=== PATIENT | female | born 1945 | race Caucasian/White ===

== ENCOUNTER 2024-05-08 16:34 | Emergency (ER) | payer MEDICARE, BC, SELFPAY ==
--- OUTSIDE RECORDS SUMMARY | 2024-05-08 16:36 | XMS_ITS | Clinical Summary ---
Author Organization [facility] Address [address] [place] [id number] Care Team Providers Care Apprentice/Lineman Name Role Phone BuschRichy alcazarith Aj Primary Care Provider Allergies Active Allergy Reactions Criticality Noted Date Comments Penicillins *Unknown - Pt Doesn't Remember 06/2015 Medications No known medications Active Problems Problem Noted Date Diagnosed Date Morbid obesity with BMI of 40.0-44.9, adult 11/2015 Bilateral pulmonary embolism 10/08/2015 Acute thromboembolism of deep veins of left lowe r extremity 10/08/2015 Tobacco dependence 10/08/2015 Resolved Problems Problem Noted Date Diagnosed Date Resolved Date Anticoagulation goal of INR 2 to 3 10/11/2015 04/12/2016 Family History Medical History Relation Name Comments Heart Disease Mother CHF Relation Name Status Comments Father (Age 89) Mother (Age 66) CHF Social History Tobacco Use Types Packs/Day Years Used Date Smoking Tobacco: Every Day Cigarettes 1 40 Smokeless Tobacco: Never Tobacco Cessation:Ready to Q uit: Yes; Counseling Given: Yes Comments:Trying to quit Alcohol Use Standard Drinks/Week Comments No 0 (1 standard drink = 0.6 oz pur e alcohol) Comments No Sex and Gender Information Value Date Recorded Sex Assigned at Not on file Legal Sex Female 9:49 AM CDT Gender Identity Not on file Sexual Orientation Not on file 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 Not on file Not on file N ot on file Obstetrics History Last Filed Vital Signs Vital Sign Reading Time Taken Comments Blood Pressure 136/84 01/18/2016 11:59 AM PATTERN P[employer]CHER Pulse 56 01/18/2016 11:59 AM PATTERN P[employer]CHER Temperature 36.4 C (97.6 F) 10/11/2015 2:22 PM CDT Respiratory Rate - - Oxygen Saturation 95% 10/11/2015 2:22 PM CDT Inhaled Oxygen Concentration - - Weight 119.7 kg (263 lb 12.8 oz) 10/11/2015 2:22 PM CDT Height 163.9 cm (5' 4.53) 10/11/2015 2:22 PM CD T Body Mass Index 44.54 10/11/2015 2:22 PM CDT Plan of Treatment Health Maintenance Due Date Last Done Comments Tdap 02/16/1956 Hepatitis C screening for age 18-79 1963 Tetanus booster 1965 Pneumococcal series for age 50+ (1 of 1 - PCV) 1995 Zoster (shingles) series for age 50+ (1 of 2) 1995 DEXA/DXA scan for age 65+ 2010 BMI (ht and wt on same day) for age 18+ 10/10/2016 0 10/11/2015, 10/07/2015 Depression screening for age 12+ 10/10/2016 10/11/19 16, 10/11/2015 RSV vaccine for adults or pr egnancy (1 - 1-dose 75+ series) 02/16/2020 COVID-19 vaccine series ( - 2023-25 season) 2023 Influenza for age 65+ 11/04/2023 Insurance [employer] [place] [employer] [place] ONLY Care Teams Apprentice/Lineman Relationship Specialty Start Date End Date Tung Busch DO [address] [place] [id number] PCP - General Family Practice 10/07/15
[2024-05-08 16:55] VITALS: BP 189/73; PULSE 78; RESP 20; TEMP 36.8; O2SAT 94
--- NOTE | 2024-05-08 17:43 | ED.GENADULT ---
[facility] - General Adult General Date Seen: 05/08/24 Chief complaint: Dizziness/Vertigo Stated complaint: Dizziness Time Seen by Provider: 05/08/24 17:20 History of Present Illness HPI narrative: Patient is a 79-year-old woman here with daughter and son for evaluation of a number of complaints. She says today she has felt lightheaded. She has been short of breath ?lately? , generally with exertion, she has pain in her right sow, she has low back pain which sounds fairly chronic and she has a large abdominal hernia which has never been evaluated. She was last seen here in 2016 at which time she had bilateral DVT and PE. She was treated with Coumadin at that time. She tells me that she was on that for some period of time, possibly 6 months or so and then that was discontinued by [facility]. She says she really has not seen a doctor much in the interim, and we have no other records on her. She denies any chest pain. She has not had fever cough. She denies injury to the right leg. She denies increased swelling to her legs. She does not have abdominal pain or vomiting. She has not had fevers, denies black or bloody stools. She quit smoking in 2016, no significant alcohol use. Currently taking no medications. Review of Systems Status of ROS: Reports: 10 or more systems reviewed and unremarkable except as noted in History and below Exam Narrative: Exam Narrative: Vital signs reviewed In general, an alert elderly woman. She looks comfortable, breathing easily. Head: Normocephalic, atraumatic. Eyes: Sclera clear. Pupils equal and reactive. ENT: Mucous membranes moist. Dentition poor. Neck: Supple without adenopathy. Heart: Regular rate and rhythm without murmur. Lungs: Clear. No increased work of breathing, crackles or wheezes. Abdomen: Soft, nontender to palpation. Large hernia of the abdominal wall, I did not attempt to fully reduce this, but there is no overlying erythema or significant tenderness. Extremities: Well perfused, pulses intact. Mild bilateral edema. She has a focal area of tenderness over the lateral lower right leg. I do not feel any masses there is no erythema or warmth. Neurologic: Alert, conversant. Speech fluent, face symmetric. Moves all extremities equally. Skin: Warm, dry well perfused. Affect: Normal. Const: Vital Signs, click to edit/add: Vital Signs - 24 hr 05/08/24 16:55 05/08/24 20:53 Temperature 98.3 F Pulse Rate [Pulse Oximeter] 78 79 Respiratory Rate 20 Blood Pressure [Ri ght Upper Arm] 189/73 H 203/89 H Pulse Oximetry 94 93 Oxygen Delivery Me thod Room Air Room Air Course Course ED Course: Patient presents with a number of symptoms, the most acute of which seems to be lightheadedness today. She has not had fainting, vital signs are relatively unremarkable aside from significant hypertension. I reviewed her hospitalization from 2016, she had an echo at that time that showed right heart strain but a normal left ventricular ejection fraction of 67%. She was noted to be hypertensive at that time, it does not sound as if she had significant follow-up although she followed up at some point with [facility] because she says they discontinued her Coumadin. Differential diagnosis of her lightheadedness is broad and includes dehydration, anemia, metabolic derangement, cardiac arrhythmia, doubt a central cause as she is not describing vertigo or imbalance, has no other neurologic complaints. She does have this dyspnea on exertion that sounds like it has been present for quite some time although she is not clear exactly how long. I did do an EKG which by my review shows a ventricular rate of 77, sinus rhythm. Nonspecific ST segment changes no acute ischemia. Unremarkable T-waves. Her abdominal hernia has seemingly been there for quite some time and it does not seem to be bothering her significantly today. She does note interest in possibly seeing somebody about it however. With regard to her leg pain, this is been going on for about a week, no specific injury and I do not see anything on exam. With her history of DVT and PE that certainly needs to be considered but I do not see any concerning findings on exam and pain is localized to an area where I would not expected for DVT. I have opted to order D-dimer and if that is negative I do not think she needs further evaluation in terms of DVT. I did order an x-ray just to make sure that there is not an unexpected fracture or stress fracture. Her low back pain according to her kids has been present for 5 or 6 years and I do not think needs specifically evaluated today. I did order imaging of her chest to evaluate for PE, I have ordered a D-dimer as well as a troponin, metabolic panel, CBC to evaluate for any anemia or metabolic derangement and a BNP to evaluate for possible congestive heart failure. Doubt acute coronary syndrome but atypical angina certainly is possible. Patient's labs are really quite reassuring. Her white blood cell count is 9.2, hemoglobin is normal, her D-dimer is 0.9 which is just slightly elevated for age, but her leg exam is so atypical for DVT that I do not think this needs further evaluation at this time. Her blood sugars normal, kidney function is normal, BNP is 5 O2 TSH is normal viral swab is negative in point of care troponin 0. I reviewed her CT scan of the chest which I do not think shows pulmonary embolism, final radiology read reviewed as well, some ground-glass opacities which may be related to something inflammatory versus poor inspiration. CT of the abdomen shows this large hernia but no other acute findings by my review. Final radiology read also reviewed and noted for hernia, cholelithiasis without cholecystitis. X-ray of the tibia was negative. I have discussed all of this with the patient and her children. I think she would benefit from primary care establishment. I think she should have a stress test to rule out atypical angina as a cause for her dyspnea on exertion. Discussed that she could certainly visit with a surgeon about her hernia if she would like although I think from a surgical standpoint she would not be a candidate at this time. Reviewed with her that her blood pressure is likely chronically elevated and should be treated. She is not sure where she will follow up, but she thinks she might like to follow-up here. For now, I have set up an outpatient stress test for her with results to go to Dr. Perry. I have asked her to call to make an appointment with him to establish primary care. Have reviewed with her that if she chooses to go elsewhere she should cancel that stress test and have liver she sees for primary care set that up for her. Reviewed reasons to return such as fainting, chest pain, severe shortness of breath or other worsening. Vital Signs Vital signs: Initial Vital Signs Temperature 98.3 F 05/08/24 16:55 Temperature Source Temporal Artery Scan 05/08/24 16:55 Pulse Rate 78 05/08/24 16:55 Respiratory Rate 20 05/08/24 16:55 Blood Pressure 189/73 H 05/08/24 16:55 Blood Pressure Mean 111 H 05/08/24 16:55 Pulse Oximetry 94 05/08/24 16:55 Oxygen Delivery Method Room Air 05/08/24 16:55 Vital Signs Temperature 98.3 F 05/08/24 16:55 Pulse Rate 78 05/08/24 16:55 Respiratory Rate 20 05/08/24 16:55 Blood Pressure 189/73 H 05/08/24 16:55 Pulse Oximetry 94 05/08/24 16:55 Oxygen Delivery Method Room Air 05/08/24 16:55 Temperature 98.3 F 05/08/24 16:55 Pulse Rate 79 05/08/24 20:53 Respiratory Rate 20 05/08/24 16:55 Blood Pressure 203/89 H 05/08/24 20:53 Pulse Oximetry 93 05/08/24 20:53 Oxygen Delivery Method Room Air 05/08/24 20:53 Medical Decision Making Lab Data Lab results reviewed: Yes I reviewed the patient's lab results Labs: Lab Results 05/08/24 05/08/24 05/08/24 Range/Units 17:47 18:20 18:20 WBC 9.21 (4.50-11.00) K/uL RBC 4.68 (4.00-5.20) m/uL Hgb 14.6 (12.0-16.0) gm/dL Hct 46.4 (33.0-51.0) % MCV 99 (80-100) fL MCH 31 (26-34) pg MCHC 32 (32-36) gm/dL RDW Coeff of Wilder 12.6 (11.5-15.5) % Plt Count 260 (140-440) K/uL Neut % (Auto) 78.8 H (42.0-72.0) % Lymph % (Auto) 14.4 L (20-44) % [place] % (Auto) 6.1 (0.0-11.0) % Eos % (Auto) 0.2 (0.0-7.0) % Baso % (Auto) 0.4 (0.0-3.0) % Neut # (Auto) 7.30 H (1.7-7.0) K/uL Lymph # (Auto) 1.30 (0.90-2.90) K/uL [place] # (Auto) 0.60 (0.00-0.90) K/UL Eos # (Auto) 0.02 (0.00-0.50) K/uL Baso # (Auto) 0.04 (0.00-0.30) K/uL Abs Immat Gran (auto) 0.01 (0.00-0.30) K/uL Imm/Tot Granulo (auto) 0.1 % D-Dimer Quant (PE/DVT) 0.90 H (0.00-0.50) ug/ml Sodium 138 (135-149) mmol/L Potassium 4.3 (3.6-5.1) mmol/L Chloride 102 (96-114) mmol/L Carbon Dioxide 27 (20-32) mmol/L Anion Gap 9 (7-15) mEq/L BUN 18 (7-30) mg/dL Creatinine 1.0 (0.5-1.5) mg/dL Estimated GFR 57 ml/min Glucose 122 H (60-115) mg/dL Calcium 8.9 (8.4-10.6) mg/dL C-Reactive Protein < 0.5 L (0.5-1.0) mg/dL NT-Pro-B Natriuret Pep 502 Cancelled pg/mL TSH 1.460 (0.270-4.200) uIU/mL SARS-CoV-2 (PCR) Negative SARS-CoV-2 (Negative) Influenza Type A (PCR) Negative PCR FLU A (Negative) Influenza Type B (PCR) Negative PCR FLU B (Negative) RSV (PCR) Negative PCR RSV (Negative) POC Troponin I 0.00 L (0.01-0.04) ng/ml Discharge Plan Discharge Clinical Impression: Episodic lightheadedness, FISHER (dyspnea on exertion), Abdominal hernia, High blood pressure Patient Disposition: Home, Self-Care Condition: Stable Instructions: Hypertension (ED), Lightheadedness (ED) Additional Instructions: I have ordered an outpatient stress test for you, with instructions for results to go to Dr. Perry. Someone should contact you to schedule the stress test, but you will need to call the clinic, , to schedule an appointment with Dr. Perry. I would recommend that you discuss your blood pressure with him as I suspected is chronically elevated and should be treated with medication. If you would like to have a discussion about your hernia, you can make an appointment with a general surgeon, same phone number. If you choose to follow-up with a different physician, please cancel the stress test and have that Order 1 for you at that follow-up appointment. Return any time for significant worsening symptoms, severe shortness of breath, chest pain, fainting or other new symptoms. Follow Up/Referrals: Tung Busch DO [Primary Care Provider] - Stand Alone Forms: [employer] Info Instructions
[2024-05-08 18:30] LABS: Basophils Absolute Auto 0.04 K/uL (0.00-0.30); Basophils Percent Auto 0.4 % (0.0-3.0); Eosinophils Absolute Auto 0.02 K/uL (0.00-0.50); Eosinophils Percent Auto 0.2 % (0.0-7.0); Hematocrit 46.4 % (33.0-51.0); Hemoglobin* 14.6 gm/dL (12.0-16.0); Immature Granulocytes Abs Auto 0.01 K/uL (0.00-0.30); Immature Granulocytes Pct Auto 0.1 %; Lymphocytes Percent Auto 14.4 % (20-44); Mean Corpuscular HGB Conc 32 gm/dL (32-36); Mean Corpuscular Hemoglobin 31 pg (26-34); Mean Corpuscular Volume 99 fL (80-100); Monocytes Percent Auto 6.1 % (0.0-11.0); Neutrophils Percent Auto 78.8 % (42.0-72.0); Platelet Count* 260 K/uL (140-440); RDW Coefficient of Variation % 12.6 % (11.5-15.5); Red Blood Count 4.68 m/uL (4.00-5.20); White Blood Count* 9.21 K/uL (4.50-11.00)
[2024-05-08 18:32] LABS: Slide Review Reflex No
[2024-05-08 18:47] LABS: PCR FLU A Negative PCR FLU A (Negative); PCR FLU B Negative PCR FLU B (Negative); PCR RSV Negative PCR RSV (Negative); SARS PCR* Negative SARS-CoV-2 (Negative)
[2024-05-08 19:02] LABS: Chloride* 102 mmol/L (96-114); Sodium* 138 mmol/L (135-149)
[2024-05-08 19:03] LABS: Potassium* 4.3 mmol/L (3.6-5.1)
[2024-05-08 19:05] LABS: Blood Urea Nitrogen* 18 mg/dL (7-30); Estimated Glomerular Filt Rate 57 ml/min
[2024-05-08 19:06] LABS: Anion Gap 9 mEq/L (7-15); Calcium* 8.9 mg/dL (8.4-10.6); Carbon Dioxide* 27 mmol/L (20-32); Glucose* 122 mg/dL (60-115)
[2024-05-08 19:11] LABS: C Reactive Protein* < 0.5 mg/dL (0.5-1.0)
[2024-05-08 19:16] LABS: NT Pro B Type NatriureticPept* 502 pg/mL
[2024-05-08 20:53] VITALS: BP 203/89; PULSE 79; O2SAT 93
== END 2024-05-08 21:22 | disposition home or self-care (01) ==
PROVIDERS: Emergency Provider Emergency Medicine; PCP Family Medicine
DX: R42 Dizziness and giddiness (principal); R06.00 Dyspnea, unspecified; K46.9 Unspecified abdominal hernia without obstruction or gangrene; R03.0 Elevated blood-pressure reading, without diagnosis of hypertension
CPT/HCPCS: 36415; 71275; 73590; 74177; 80048; 83880; 84443; 84484; 85025; 85379; 86140; 87631; 93005; 96374; 96375; 99284; 99285; Q9967

== ENCOUNTER 2024-05-27 10:47 | Outpatient (RCR) | payer MEDICARE, BC, SELFPAY ==
[2024-05-20] MEDS: SODIUM CHLORIDE 0.9 % (FLUSH) 10 ML SYRINGE IVF (09:32)
[2024-05-20] MEDS: REGADENOSON 0.4 MG/5 ML SYRINGE IVP (09:32)
[2024-05-20 09:54] VITALS: BP 177/90; PULSE 77; RESP 18; O2SAT 92
--- NOTE | 2024-05-20 11:50 | W.PM.STED ---
Stress Test Note Date Date Seen: 05/20/24 Date of test: 05/20/24 Providers Referring provider: Vinay Perry Primary care provider: Not a Local Provider Stress test physician: Clifford Shabazz Stress Test Note Stress test ordered: Lexiscan Indication for test: Dyspnea on exertion Stress test medicine: Lexiscan Results discussion: This pleasant lady presents for the above test after discussion the risks benefits and side effects she would like to proceed pretest EKG shows normal sinus rhythm, with a ventricular rate of 70 blood pressure 177 on 03/06. Cardiac stress test review of his chart is done. I did do a quick examination on this lady also she had no wheezes on examination easy respirations, no crackles, or signs respiratory distress, and heart sounds were normal with absence of any significant murmurs. Standard Lexiscan protocol is done, infused over a 5 minute. Maximum heart rate was 112, which is 93% of her maximum. She was asymptomatic, did not develop any chest pain shortness of breath or any other anginal equivalent symptoms. Objectively, her tracing did not change, there are no dysrhythmias are no significant ST wave changes. Impression: Negative Lexiscan, both subjectively and objectively. Nuclear imaging pending Follow up suggested: Await nuclear imaging, which he read by Cardiology and nuclear Medicine, clinical correlation with this will be needed. Patient left this testing facility in good condition. No complications.
== END 2024-06-03 23:59 | disposition home or self-care (01) ==
LOC: STRESS 10:47
PROVIDERS: Visit Provider Emergency Medicine
DX: R06.09 Other forms of dyspnea (principal)
CPT/HCPCS: 78451; 78452; 93016; 93017; A9500; J2785

== ENCOUNTER 2024-06-11 15:38 | Outpatient (CLI) | payer MEDICARE, BC, SELFPAY | END 2024-06-11 15:39 | disposition home or self-care (01) | LOC: NFLDREF 15:40 | PROVIDERS: Visit Provider Family Medicine | DX: Z13.6 Encounter for screening for cardiovascular disorders (principal) | CPT/HCPCS: 80061 ==